=== PATIENT | male | born 1945 | race African-American/Black ===

== ENCOUNTER 2016-08-23 09:59 | Outpatient (CLI) | payer MEDICARE ==
[2016-08-23 13:00] LABS: Bilirubin Negative (Negative); Blood, Urine Trace (Negative); Clarity Clear (Clear); Glucose, Urine (Dipstick) Negative (Negative); Leukocyte Trace (Negative); Nitrite Negative (Negative); Protein, Urine (Dipstick) Trace mg/dL (Neg-Trace); Specific Gravity, Urine 1.015 (1.005-1.030); Urobilinogen 0.2 mg/dL (0.2-1.0)
[2016-08-23 13:22] LABS: ALT (SGPT) 14 U/L (0-55); AST (SGOT) 15 U/L (5-34); Alkaline Phosphatase 90 U/L (40-150); Anion Gap 15 mmol/L (10-20); BUN (Urea Nitrogen) 20 mg/dL (8.4-25.7); Bilirubin, Total 0.7 mg/dL (0.2-1.2); Calc. Creatinine Clearance 0 mL/min (70-130); Calcium 9.4 mg/dL (7.8-10.44); Carbon Dioxide 30 mmol/L (23-31); Cardiac Risk 4.5 (Less than 4.5); Chloride 102 mmol/L (98-107); Cholesterol 180 mg/dL (< 200 Desired); Estimated GFR-MDRD 57; Globulin 2.8 g/dL (2.4-3.5); Glucose 108 mg/dL (83-110); HDL Cholesterol 40 mg/dL (>60 Neg Risk); LDL Cholesterol, Calculated 128 mg/dL; Potassium 3.3 mmol/L (3.5-5.1); Protein, Total 6.8 g/dL (5.8-8.1); Sodium 144 mmol/L (136-145); Triglycerides 62 mg/dL (Less than 150)
[2016-08-23 13:35] LABS: Bacteria/HPF Rare-Few HPF (None Seen); Squamous Epithelial 0-3 HPF (0-3); WBC/HPF 0-3 HPF (0-3)
[2016-08-23 13:39] LABS: #Basophils 0.1 thou/uL (0.0-0.2); #Eosinphils 0.1 thou/uL (0.0-0.7); #Lymphocytes 1.5 thou/uL (1.20-3.40); #Monocytes 0.3 thou/uL (0.11-0.59); #Neutrophils 3.5 thou/uL (1.40-6.50); %Basophils 1.1 % (0.0-1.0); %Eosinophils 1.3 % (0.0-10.0); %Lymphocytes 27.2 % (21.0-51.0); %Neutrophils 64.4 % (42.0-75.0); Hemoglobin 11.6 g/dL (14.0-18.0); Mean Corpuscular HGB CONC 32.3 g/dL (32.0-36.0); Mean Corpuscular Volume 80.6 fl (80.0-94.0); Mean Platelet Volume 5.9 fL (7.4-10.4); Platelet Count 269 thou/uL (130-400); RBC Distribution Width 13.9 % (11.5-14.5); Red Blood Cell (RBC) Count 4.47 mill/uL (4.70-6.10); White Blood Cell (WBC) Count 5.4 thou/uL (4.8-10.8)
== END 2016-08-23 10:00 | disposition home or self-care (01) ==
LOC: NAVSJIPCSP 09:59
PROVIDERS: ATTEND Internal Medicine
DX: Z12.5 Encounter for screening for malignant neoplasm of prostate (principal); Z51.81 Encounter for therapeutic drug level monitoring; I11.9 Hypertensive heart disease without heart failure; Z79.899 Other long term (current) drug therapy
CPT/HCPCS: 36415; 80053; 80061; 81003; 81015; 85025; G0103

== ENCOUNTER 2017-04-21 07:54 | Outpatient (CLI) | payer MEDICARE ==
--- NOTE | 2017-04-21 10:04 | CT ---
BRAIN CT WITHOUT IV CONTRAST: History: 72-year-old male with memory loss. FINDINGS: Bilateral atrophy and chronic white matter ischemic change. No mass or bleed or other significant acu te process. Minimal sinus mucosal disease. The mastoids are clear. IMPRESSION: Atrophy and chronic white matter ischemic change without mass or bleed. Mild sinus mucosal disease. POS: [facility]
--- NOTE | 2017-04-21 14:35 | ULT ---
RENAL ULTRASOUND WITH DOPPLER EVALUATION: Date: 04-21-17 Comparison: None. History: Hypertension, heart size, without heart failure. Assess for renal artery stenosis. Technique: Multiplanar grayscale sonographic imaging of the kidneys and urinary bladder obtained. Dop pler assessment of the renal vasculature obtained with color flow and spectral analysis. FINDINGS: Pre void urinary bladder volume is 80 cc and post void urinary bladder is approximately 1 cc. The lef t kidney measures 10.7 x 5.0 x 4.6 cm and demonstrates no renal mass, hydronephrosis or stone. The ri ght kidney measures 10.3 x 4.3 x 5.6 cm. There is a midpole right renal cyst measuring 1.1 x 1.2 cm. There is no hydronephrosis or renal stone noted on the right. The peak systolic velocity of the abdominal aorta in the region of the renal arteries is 34 cm/sec. T he maximum right renal artery velocity is 43 cm/sec and the maximum left renal artery velocity is 65 cm/sec. The renal artery/aortic ratio on the right is 1.3 and on the left is 1.9. The right arcuate resistive indices measure up to 0.78 and the left arcuate resistive indices measure up to 0.73. IMPRESSION: No evidence for renal artery stenosis on the basis of sonographic velocity criteria. POS: [facility]
== END 2017-04-21 07:55 | disposition home or self-care (01) ==
LOC: NAV ULT 07:54
PROVIDERS: ATTEND Internal Medicine
DX: I11.9 Hypertensive heart disease without heart failure (principal); R41.3 Other amnesia; G31.9 Degenerative disease of nervous system, unspecified; J34.89 Other specified disorders of nose and nasal sinuses
CPT/HCPCS: 70450; 76700; 76770

== ENCOUNTER 2018-11-30 12:07 | Outpatient (CLI) | payer MEDICARE ==
[2018-11-30 12:19] LABS: Potassium 3.3 mmol/L (3.5-5.1)
== END 2018-11-30 12:08 | disposition home or self-care (01) ==
LOC: NAV LABSP 12:07 → NAVSJIPCSP 12:08
PROVIDERS: ATTEND Internal Medicine
DX: E87.5 Hyperkalemia (principal)
CPT/HCPCS: 84132

== ENCOUNTER 2018-12-25 11:26 | Emergency (ER) | payer MEDICARE ==
[2018-12-25 12:12] LABS: ALT (SGPT) 16 U/L (8-55); AST (SGOT) 12 U/L (5-34); Alkaline Phosphatase 111 U/L (40-150); Anion Gap 17 mmol/L (10-20); BUN (Urea Nitrogen) 21 mg/dL (8.4-25.7); Bilirubin, Total 0.5 mg/dL (0.2-1.2); CK (CPK) 78 U/L (30-200); Calc. Creatinine Clearance 0 mL/min (70-130); Calcium 9.4 mg/dL (7.8-10.44); Carbon Dioxide 26 mmol/L (23-31); Chloride 102 mmol/L (98-107); Estimated GFR-MDRD 38; Globulin 2.8 g/dL (2.4-3.5); Glucose 112 mg/dL (83-110); Protein, Total 6.8 g/dL (5.8-8.1); Sodium 142 mmol/L (136-145)
--- NOTE | 2018-12-25 12:20 | RAD ---
EXAM: Portable chest PROVIDED CLINICAL HISTORY: Dizziness COMPARISON: None FINDINGS: Cardiac and mediastinal silhouette is within normal limits. No focal consolidation, pleural fluid or pneumothorax evident with limitations due to exclusion of the left lateral costophrenic angle. IMPRESSION: No evidence for an acute cardiopulmonary process.
[2018-12-25 12:26] LABS: Hemoglobin 11.4 g/dL (14.0-18.0); Mean Corpuscular HGB CONC 30.8 g/dL (32.0-36.0); Mean Corpuscular Hemoglobin 24.8 pg (27.0-31.0); Mean Corpuscular Volume 80.7 fL (78.0-98.0); Mean Platelet Volume 6.1 fL (7.4-10.4); Platelet Count 279 thou/uL (130-400); RBC Distribution Width 14.2 % (11.5-14.5); Red Blood Cell (RBC) Count 4.58 mill/uL (4.70-6.10); White Blood Cell (WBC) Count 5.9 thou/uL (4.8-10.8)
[2018-12-25 12:27] LABS: Anisocytosis SLIGHT = 6-15 cells (100X) (0-5/hpf); Elliptocytes SLIGHT = 2-5 cells (100X) (0-1/hpf); Eosinophils 2 % (0-10); Hypochromia SLIGHT = 6-15 cells (100X) (0-5/hpf); Lymphocytes 24 % (21-51); MDiff Complete? YES; Monocytes 9 % (0-10); Neutrophil 65 % (42-75); Platelet Morphology Comment Appears Adequate; Poikilocytosis SLIGHT = 6-15 cells (100X) (0-5/hpf)
[2018-12-25] MEDS ORDERED: Ondansetron PF 4 MG/2 ML Vial ONE (12:28)
[2018-12-25 12:38] LABS: Potassium 2.9 mmol/L (3.5-5.1)
[2018-12-25] MEDS ORDERED: Pot Chloride/Pot Bicarb/Cit Ac 25 mEq Effervescent Tablet ONE (12:44)
[2018-12-25 13:51] LABS: Bilirubin Negative (Negative); Blood, Urine Trace (Negative); Clarity Clear (Clear); Glucose, Urine (Dipstick) 100 mg/dL (Negative); Leukocyte Negative (Negative); Nitrite Negative (Negative); Protein, Urine (Dipstick) 30 mg/dL (Neg-Trace); Urobilinogen 0.2 mg/dL (Less than 2)
[2018-12-25 14:04] LABS: Bacteria/HPF Rare-Few HPF (None Seen); RBC/HPF 0-3 HPF (0-3); Squamous Epithelial 0-3 HPF (0-3); WBC/HPF 0-3 HPF (0-3)
== END 2018-12-25 14:13 | disposition home or self-care (01) ==
LOC: NAV ERS 11:26
DX: T67.5XXA Heat exhaustion, unspecified, initial encounter (principal); E87.6 Hypokalemia; I10 Essential (primary) hypertension; F03.90 Unspecified dementia, unspecified severity, without behavioral disturbance, psychotic disturbance, mood disturbance, and anxiety; Z79.899 Other long term (current) drug therapy; X30.XXXA Exposure to excessive natural heat, initial encounter
CPT/HCPCS: 36415; 71045; 80053; 81003; 81015; 82550; 83735; 84484; 85025; 93005; 94760; 96361; 96374; J2405

== ENCOUNTER 2019-10-13 13:46 | Emergency (ER) | payer MEDICARE ==
[2019-10-13 14:23] LABS: #Basophils 0.1 thou/uL (0.0-0.2); #Eosinphils 0.1 thou/uL (0.0-0.7); #Lymphocytes 1.5 thou/uL (1.20-3.40); #Monocytes 0.6 thou/uL (0.11-0.59); #Neutrophils 5.3 thou/uL (1.40-6.50); %Basophils 1.1 % (0.0-1.0); %Eosinophils 1.7 % (0.0-10.0); %Lymphocytes 19.1 % (21.0-51.0); %Monocytes 8.3 % (0.0-10.0); %Neutrophils 69.8 % (42.0-75.0); Hemoglobin 10.3 g/dL (14.0-18.0); Mean Corpuscular HGB CONC 30.1 g/dL (32.0-36.0); Mean Corpuscular Hemoglobin 25.3 pg (27.0-31.0); Mean Platelet Volume 6.8 fL (7.4-10.4); Platelet Count 236 thou/uL (130-400); RBC Distribution Width 14.5 % (11.5-14.5); Red Blood Cell (RBC) Count 4.05 mill/uL (4.70-6.10); White Blood Cell (WBC) Count 7.6 thou/uL (4.8-10.8)
[2019-10-13 14:46] LABS: ALT (SGPT) 13 U/L (8-55); AST (SGOT) 12 U/L (5-34); Albumin 3.6 g/dL (3.4-4.8); Alkaline Phosphatase 90 U/L (40-110); Anion Gap 13 mmol/L (10-20); BUN (Urea Nitrogen) 23 mg/dL (8.4-25.7); Bilirubin, Total 0.5 mg/dL (0.2-1.2); Calc. Creatinine Clearance 0 mL/min (70-130); Calcium 9.1 mg/dL (7.8-10.44); Carbon Dioxide 27 mmol/L (23-31); Chloride 105 mmol/L (98-107); Estimated GFR-MDRD 34; Globulin 2.8 g/dL (2.4-3.5); Glucose 107 mg/dL (83-110); Potassium 3.5 mmol/L (3.5-5.1); Protein, Total 6.4 g/dL (5.8-8.1); Sodium 141 mmol/L (136-145)
[2019-10-13] MEDS ORDERED: Sodium Chloride 0.9% 1,000 ML ONE (15:00)
--- NOTE | 2019-10-13 15:10 | CT ---
CT BRAIN WITHOUT CONTRAST: 10/13/19 HISTORY: Syncope, dementia. COMPARISON: 05/28/19. FINDINGS: There are changes of cortical atrophy and chronic small vessel ischemic disease. The ventricular size is stable and the basilar cisterns patent. No evidence of acute infarct, hemorrhage, midline shift or abnormal extra-axial fluid collections are seen. The bony calvarium is intact. 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 Thi s was also seen on the previous exam. IMPRESSION: No CT evidence of acute intracranial process. POS: [facility]
[2019-10-13 15:17] LABS: Bilirubin Negative (Negative); Blood, Urine Trace (Negative); Clarity Clear (Clear); Glucose, Urine (Dipstick) Negative (Negative); Leukocyte Trace (Negative); Nitrite Negative (Negative); Protein, Urine (Dipstick) 30 mg/dL (Neg-Trace)
[2019-10-13 15:20] LABS: Bacteria/HPF None Seen HPF (None Seen); RBC/HPF 0-3 HPF (0-3); Squamous Epithelial 0-3 HPF (0-3)
[2019-10-13] MEDS ORDERED: Cephalexin 250 MG CAP ONE (17:08)
== END 2019-10-13 17:22 | disposition home or self-care (01) ==
LOC: NAV ERS 13:46
DX: R55 Syncope and collapse (principal); I12.9 Hypertensive chronic kidney disease with stage 1 through stage 4 chronic kidney disease, or unspecified chronic kidney disease; D64.9 Anemia, unspecified; N39.0 Urinary tract infection, site not specified; N18.9 Chronic kidney disease, unspecified; F03.90 Unspecified dementia, unspecified severity, without behavioral disturbance, psychotic disturbance, mood disturbance, and anxiety; Z79.899 Other long term (current) drug therapy
CPT/HCPCS: 70450; 80053; 81003; 81015; 84484; 85025; 93005; 94760; 96360; J7050